=== PATIENT | female | born 1945 | race Caucasian/White ===

== ENCOUNTER → 2019-04-30 | Outpatient (CLI) | payer MEDICARE, OTHER ==
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
== END ==
LOC: RAD FS 09:50
PROVIDERS: ATTEND Nurse Practitioner Family
DX: M47.816 Spondylosis without myelopathy or radiculopathy, lumbar region (principal); M43.16 Spondylolisthesis, lumbar region
CPT/HCPCS: 72100

== ENCOUNTER → 2019-05-27 | Outpatient (CLI) | payer MEDICARE, OTHER ==
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
== END ==
LOC: RAD 09:15
PROVIDERS: ATTEND Nurse Practitioner Family
DX: M46.86 Other specified inflammatory spondylopathies, lumbar region (principal); M47.816 Spondylosis without myelopathy or radiculopathy, lumbar region
CPT/HCPCS: 72148

== ENCOUNTER → 2020-09-20 | Outpatient (CLI) | payer MEDICARE, OTHER ==
--- NOTE | 2020-09-20 12:57 | Diagnostic Imaging Report ---
INDICATION: Thumb pain. COMPARISON: None available. TECHNIQUE: 3 radiographs of the left hand dated 09/20/2020 FINDINGS: Ring is identified overlying the base of the 4th digit. No acute fracture or dislocation. No destructive osseous process. Mild scattered degenerative changes with joint space narrowing and minimal osteophyte formation. This is greatest involving the 1st CMC joint and scattered DIP joints. Scapholunate interval is within normal limits. No suspicious radiopaque foreign body. IMPRESSION: No acute osseous abnormality with mild scattered degenerative changes, greatest involving the 1st CMC joint. Dictated by: Dictated on workstation # [id number]
== END ==
LOC: RAD FS 12:23
PROVIDERS: ATTEND Nurse Practitioner Family
DX: M18.12 Unilateral primary osteoarthritis of first carpometacarpal joint, left hand (principal)
CPT/HCPCS: 73130

== ENCOUNTER → 2021-02-16 | Outpatient (CLI) | payer MEDICARE, OTHER ==
--- NOTE | 2021-02-16 12:34 | Diagnostic Imaging Report ---
INDICATION: Right lower quadrant abdominal pain. Diarrhea. COMPARISON: None FINDINGS: Supine and upright views the abdomen demonstrate nonobstructive small bowel gas pattern. Mild amount of air and stool are seen scattered throughout the colon. No abnormal air-fluid levels or large collection of free intraperitoneal air is seen. No abnormal extraosseous calcifications or radiopaque foreign bodies are identified. Bony structures are age-appropriate. IMPRESSION: 1. Nonobstructive small bowel gas pattern. Dictated by: Dictated on workstation # [id number]
== END ==
LOC: RAD FS 11:35
PROVIDERS: ATTEND Nurse Practitioner Family
DX: R10.31 Right lower quadrant pain (principal); R19.7 Diarrhea, unspecified
CPT/HCPCS: 74019

== ENCOUNTER → 2021-09-10 | Outpatient (CLI) | payer MEDICARE, OTHER ==
--- NOTE | 2021-09-10 14:49 | Diagnostic Imaging Report ---
INDICATION: Mitral insufficiency. EXAMINATION: PA and lateral chest. FINDINGS: There is scoliosis of the upper thoracic spine, convex to the left. The heart size and pulmonary vascularity are normal. The lungs are clear. There are no effusions or pneumothoraces. IMPRESSION: No acute abnormalities in the chest. Dictated by: Dictated on workstation # [id number]
== END ==
LOC: RAD FS 12:20
PROVIDERS: ATTEND Student in an Organized Health Care Education/Training Program
DX: I34.0 Nonrheumatic mitral (valve) insufficiency (principal)
CPT/HCPCS: 71046

== ENCOUNTER 2023-01-13 23:32 | Emergency (ER) | payer MEDICARE, OTHER ==
[~2023-01-13] VITALS: Ht 154.9 cm; Wt 61.5 kg
--- NOTE | 2023-01-13 23:42 | ED General ---
General Stated Complaint: MEDICATION COMPLICATIONS History of Present Illness Date Seen by Provider: Jan 13, 2023 Time Seen by Provider: 23:37 Initial Comments 77-year-old female presents with medication side effect. She recently started on vibegron/gemtesa. Reports that this was her second dose and after she took it she just feels little funny, feels like she is got Quite a bit of a runny nose, just feels not very good, mild headache. Patient is not having any shortness of breath, rash or other systemic complaints. Patient reports that the previous time she took it was on December 30 and then take it again till ton because she did not like how it made her feel the first time she took it. Allergies and Home Medications Allergies Coded Allergies: diphenhydramine (Verified Allergy, Intermediate, Itching, 01/13/23) Patient Home Medication List Home Medication List Reviewed: Yes Review of Systems Review of Systems Constitutional: malaise EENTM: see HPI Respiratory: No short of breath Cardiovascular: No chest pain, No palpitations Gastrointestinal: No abdominal pain, No nausea, No vomiting Musculoskeletal: no symptoms reported Skin: no symptoms reported Hematologic/Lymphatic: No Symptoms Reported Physical Exam Vital Signs Vital Signs - First Documented 01/13/23 23:39 Temp 36.7 Pulse 54 Resp 18 B/P (MAP) 178/64 (102) Pulse Ox 96 O2 Delivery Room Air Capillary Refill : Height, Weight, BMI Height: '" Weight: lbs. oz. kg; BMI Method: General Appearance: No Apparent Distress, WD/WN Respiratory: Lungs Clear, Normal Breath Sounds Cardiovascular: Regular Rate, Rhythm, No Edema Gastrointestinal: Non Tender, Soft Neurologic/Psychiatric: Alert, Oriented x3, No Motor/Sensory Deficits, Normal Mood/Affect, industrial order clerk II-XII Norm as Tested Progress/Results/Core Measures Suspected Sepsis SIRS Temperature: Pulse: Respiratory Rate: Blood Pressure / Mean: Results/Orders Vital Signs/I&O 01/13/23 01/13/23 01/14/23 23:39 23:39 00:40 Temp 36.7 Pulse 54 58 Resp 18 17 B/P (MAP) 178/64 (102) 141/58 Pulse Ox 96 95 O2 Delivery Room Air Room Air Room Air Capillary Refill : Progress Note : Progress Note Patient's symptoms are consistent with common side effect of her medication. She does not appear to be having an allergic or anaphylactic reaction. She was monitored in the ER for approximately 35 to 45 minutes, with no progression of symptoms and actually feels better.. Patient is doing fine, stable and discharged home. I recommend she follows up with Dr. Ellis to discuss other medication options Departure Impression Primary Impression: Medication adverse effect Qualified Codes: T50.905A - Adverse effect of unspecified drugs, medicaments and biological substances, initial encounter Disposition: HOME, SELF-CARE Condition: Stable Departure-Patient Inst. Referrals: SERGIO CAICEDO APRN (PCP) Primary Care Physician Patient Instructions: Adverse Drug Reactions, Adult ED Add. Discharge Instructions: Please follow-up with Dr. Ellis's office to determine what other medications you can use in place of the JOHANNA Nicole DO Jan 13, 2023 23:42
[2023-01-14 00:40] VITALS: BP 141/58
== END 2023-01-14 00:40 | disposition home or self-care (01) ==
LOC: EDUNIT# 23:32 → ER FS 23:34
DX: R51.9 Headache, unspecified (principal); T50.995A Adverse effect of other drugs, medicaments and biological substances, initial encounter
CPT/HCPCS: 99282